=== PATIENT | female | born 1995 | race Caucasian/White ===

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

== ENCOUNTER 2017-03-04 14:13 | Emergency (ER) | payer OTHER ==
[2017-03-04 14:21] VITALS: TEMP 97.8; BMI 31.8
[2017-03-04] MEDS ORDERED: SODIUM CHLORIDE 1,000 ML IV STA (16:43)
[2017-03-04] MEDS ORDERED: ONDANSETRON 4 MG/2 ML VIAL IVPUSH ONE (16:43)
[2017-03-04] MEDS ORDERED: ONDANSETRON 4 MG/2 ML VIAL ONE (16:59)
--- NOTE | 2017-03-04 17:10 | PDOC ---
History of Present Illness - General Chief Complaint: Pain Stated Complaint: SICK Time Seen by Provider: 03/04/17 15:43 History Source: Patient - History of Present Illness Timing/Duration: reports: constant Quality: reports: mild Abdominal Pain Onset Location: reports: other (lower abd) Past History - Past Medical History Allergies/Adverse Reactions: Allergies Allergy/AdvReac Type Severity Reaction Status Date / Time No Known Allergies Allergy Verified 03/04/17 14:21 Home Medications: Ambulatory Orders NK [No Known Home Medication] 03/04/17 Other medical history: NONE - Reproductive History Is Patient Now?: No (#): 0 Cervical CA: No Dysfunctional Uterine Bleeding: No Ectopic : No Endometrial CA: No Polycystic Ovaries: No Therapeutic (s) & number: No Tubal Ligation: No - Immunization History Immunization Up to Date: Yes - Psycho/Social/Smoking Cessation Hx Anxiety: No Suicidal Ideation: No Smoking History: Never smoked Have you smoked in the past 12 months: No Hx Alcohol Use: Yes (SOCIAL) Drug/Substance Use Hx: No Substance Use Type: None Review of Systems - Review of Systems Constitutional: No: Chills, Fever, Malaise, Weakness ABD/GI: Yes: Diarrhea, Nausea, Vomiting, Abdominal cramping : No: Dysuria, Flank Pain, Hematuria *Physical Exam - Vital Signs Last Vital Signs Temp Pulse Resp BP Pulse Ox 97.8 F 88 20 154/89 98 03/04/17 14:17 03/04/17 14:17 03/04/17 14:17 03/04/17 14:17 03/04/17 14:17 - Physical Exam General Appearance: Yes: Appropriately Dressed. No: Apparent Distress HEENT: positive: Normal Voice Neck: positive: Supple Respiratory/Chest: negative: Respiratory Distress Gastrointestinal/Abdominal: positive: Normal Bowel Sounds, Tender (to mid lower abd, NT over RLQ), Soft. negative: Distended, Guarding, Rebound Musculoskeletal: negative: CVA Tenderness Extremity: positive: Normal Inspection Integumentary: positive: Dry, Warm Neurologic: positive: Fully Oriented, Alert, Normal Mood/Affect ED Treatment Course - LABORATORY CBC & Chemistry Diagram: 03/04/17 16:56 03/04/17 16:56 Medical Decision Making - Medical Decision Making 03/04/17 17:07 21 yo F, no sig hx, here with n/v/d that started 2 hrs ago and a/w lower abd pain. No f/c. No usual food, sick contact, recent travel or abx use. Also complaining that her menses was late this month. Uses condoms per pt See exam N/V/D today Possible gastroenteritis, unlikely appy -zoan -IVF -labs Irreg menses R/o preg 03/04/17 18:49
[2017-03-04 17:14] LABS: BASOPHIL 0.3 % (0-2.0); EOSINOPHIL 0.7 % (0-4.5); MCH 28.3 pg (25.7-33.7); MCHC 33.5 g/dl (32.0-36.0); MEAN CELL VOLUME 84.2 fl (80-96); MEAN PLT VOLUME 9.4 fl (7.5-11.1); NEUTROPHILS 83.1 % (42.8-82.8); PLATELET COUNT 160 K/MM3 (134-434); RDW 13.2 % (11.6-15.6); WHITE BLOOD COUNT 7.6 K/mm3 (4.0-10.0)
[2017-03-04 18:40] VITALS: BP 109/65; PULSE 70
[2017-03-04 19:08] LABS: ALBUMIN 3.8 g/dl (3.4-5.0); ANION GAP 8 (8-16); CALCIUM 8.5 mg/dL (8.5-10.1); CO2 27 mmol/L (21-32); CREATININE 0.6 mg/dL (0.55-1.02); GLUCOSE,RANDOM 82 mg/dL (74-106); SGOT/AST 23 U/L (15-37); SGPT/ALT 21 U/L (12-78)
[2017-03-04 19:10] LABS: ALK PHOS 62 U/L (45-117); BILIRUBIN,TOTAL 0.6 mg/dL (0.2-1.0); TOT PROT 7.2 g/dl (6.4-8.2)
--- NOTE | 2017-03-04 19:37 | PDOC ---
*Physical Exam - Vital Signs Last Vital Signs Temp Pulse Resp BP Pulse Ox 97.8 F 70 18 109/65 97 03/04/17 14:17 03/04/17 18:39 03/04/17 18:39 03/04/17 18:39 03/04/17 18:39 - Physical Exam General Appearance: Yes: Appropriately Dressed Respiratory/Chest: positive: Lungs Clear, Normal Breath Sounds Gastrointestinal/Abdominal: positive: Normal Bowel Sounds, Soft, Other ( generalized mild tenderness) Extremity: positive: Normal Capillary Refill, Normal Inspection, Normal Range of Motion Integumentary: positive: Normal Color, Dry, Warm Neurologic: positive: Fully Oriented, Alert, Normal Mood/Affect ED Treatment Course - LABORATORY CBC & Chemistry Diagram: 03/04/17 16:56 03/04/17 18:18 - ADDITIONAL ORDERS Additional order review: Laboratory Results 03/04/17 03/04/17 03/04/17 18:18 16:56 16:56 Sodium 140 Cancelled Potassium 3.9 Cancelled Chloride 105 Cancelled Carbon Dioxide 27 Cancelled Anion Gap 8 Cancelled BUN 12 Cancelled Creatinine 0.6 D Cancelled Creat Clearance w eGFR > 60 Cancelled Random Glucose 82 Cancelled Calcium 8.5 Cancelled Total Bilirubin 0.6 D Cancelled AST 23 Cancelled ALT 21 D Cancelled Alkaline Phosphatase 62 Cancelled Total Protein 7.2 Cancelled Albumin 3.8 Cancelled Serum , Qual Cancelled 03/04/17 16:56 RBC 4.24 MCV 84.2 MCHC 33.5 RDW 13.2 MPV 9.4 Neutrophils % 83.1 H D Lymphocytes % 12.8 D Monocytes % 3.1 L Eosinophils % 0.7 Basophils % 0.3 - Medications Given in the ED: ED Medications Discontinued Medications Generic Name Dose Route Start Last Admin Trade Name Freq PRN Reason Stop Dose Admin Sodium Chloride 1,000 mls @ 1,000 mls/hr 03/04/17 16:43 03/04/17 17:11 Normal Saline - IV 03/04/17 17:42 1,000 mls/hr ASDIR STA Administration Ondansetron HCl 4 mg 03/04/17 16:43 03/04/17 17:11 Zofran Injection IVPUSH 03/04/17 16:44 4 mg ONCE ONE Administration Medical Decision Making - Medical Decision Making 06/28/17 20:06 patient tolerating PO. no vomiting or diarrhea at this time. mild intermittent generalized cramping reported. will give bentyl. liekly gastroenteritis. BRAT diet and close PMD follow up. strict return precautions reviewed with patient. *DC/Admit/Observation/Transfer Diagnosis at time of Disposition: Gastroenteritis - Discharge Dispostion Disposition: HOME - Patient Instructions Printed Discharge Instructions: Viral Gastroenteritis, Gastroenteritis Diet Additional Instructions: continue a BRAT (Bananas, RICE, apples, Naylor) Diet drink plenty of fluids follow up with your doctor. return to the ER if symptoms worsen.
[2017-03-04] MEDS ORDERED: DICYCLOMINE HCL 10 MG CAPSULE ONE (19:52)
[2017-03-04] MEDS ORDERED: DICYCLOMINE HCL 10 MG/5 ML PO ONE (19:58)
== END 2017-03-04 20:10 | disposition home or self-care (01) ==
LOC: JER 14:13
PROC: 3E033GC Introduction of Other Therapeutic Substance into Peripheral Vein, Percutaneous Approach (ICD-10-PCS; principal; 2017-03-04)
DX: K52.9 Noninfective gastroenteritis and colitis, unspecified (principal)
CPT/HCPCS: 36415; 80053; 84703; 85025; 96374; 99284-25

== ENCOUNTER 2017-07-02 06:11 | Emergency (ER) | payer OTHER ==
[2017-07-02 06:52] VITALS: BP 108/90; PULSE 86; TEMP 98.6; BMI 31.0
--- NOTE | 2017-07-02 07:11 | PDOC ---
History of Present Illness - General Chief Complaint: Pain, Acute Stated Complaint: RT SHOULDER PAIN Time Seen by Provider: 07/02/17 07:08 History Source: Patient Exam Limitations: No Limitations - History of Present Illness Initial Comments: 07/02/17 07:11 Patient is a 21-year-old female with no past medical history presents to the emergency department complaining of worsening right shoulder pain. Patient states that her pain started approximately 3-4 weeks ago. She denies trauma or injuring her shoulder in anyway. She states that the pain is gone progressively worse over the last month and now it is difficult for her to brush her hair or put on her makeup. She has tried taking ibuprofen with little relief. She states that occasionally the pain radiates down her arm. Admits to weakness, pain with movement. Denies numbness and tingling, fevers, chills, recent illness , nausea, vomiting, diarrhea. Past History - Travel Traveled outside of the country in the last 30 days: No Close contact w/someone who was outside of country & ill: No - Past Medical History Allergies/Adverse Reactions: Allergies Allergy/AdvReac Type Severity Reaction Status Date / Time No Known Allergies Allergy Verified 07/02/17 06:50 Home Medications: Ambulatory Orders Ibuprofen 800 mg PO TID #30 tablet 07/02/17 - Reproductive History (#): 0 Cervical CA: No Dysfunctional Uterine Bleeding: No Ectopic : No Endometrial CA: No Polycystic Ovaries: No Therapeutic (s) & number: No Tubal Ligation: No - Immunization History Immunization Up to Date: Yes - Suicide/Smoking/Psychosocial Hx Smoking History: Never smoked Have you smoked in the past 12 months: No Information on smoking cessation initiated: No Hx Alcohol Use: No Drug/Substance Use Hx: No Substance Use Type: None Review of Systems - Review of Systems Able to Perform ROS?: Yes Comments:: 07/02/17 08:23 CONSTITUTIONAL: Absent: fever, chills, diaphoresis, generalized weakness, malaise, loss of appetite HEENT: Absent: rhinorrhea, nasal congestion, throat pain, throat swelling, difficulty swallowing, mouth swelling, ear pain, eye pain, visual Changes CARDIOVASCULAR: Absent: chest pain, loss of consciousness, palpitations, irregular heart rate, peripheral edema RESPIRATORY: Absent: cough, shortness of breath, dyspnea with exertion, orthopnea, wheezing, stridor, hemoptysis GASTROINTESTINAL: Absent: abdominal pain, abdominal distension, nausea, vomiting, diarrhea, constipation, melena, hematochezia GENITOURINARY: Absent: dysuria, frequency, urgency, hesitancy, hematuria, flank pain, genital pain MUSCULOSKELETAL: Present: R shoulder pain/weakness Absent: joint swelling SKIN: Absent: rash, itching, pallor HEMATOLOGIC/IMMUNOLOGIC: Absent: easy bleeding, easy bruising, lymphadenopathy, frequent infections ENDOCRINE: Absent: unexplained weight gain, unexplained weight loss, heat intolerance, cold intolerance NEUROLOGIC: Absent: headache, focal weakness or paresthesias, dizziness, unsteady gait, seizure, mental status changes, bladder or bowel incontinence PSYCHIATRIC: Absent: anxiety, depression, suicidal or homicidal ideation, hallucinations. *Physical Exam - Vital Signs Last Vital Signs Temp Pulse Resp BP Pulse Ox 98.6 F 86 14 108/90 100 07/02/17 06:50 07/02/17 06:50 07/02/17 06:50 07/02/17 06:50 07/02/17 06:50 - Physical Exam Comments: 07/02/17 08:23 GENERAL: Well developed, well nourished. Awake and alert x3. No acute distress. HEENT: Normocephalic, atraumatic. PERRLA, EOMI. No conjunctival pallor. Sclera are non- icteric. Moist mucous membranes. Oropharynx is clear. NECK: Supple. Full ROM. No JVD. Carotid pulses 2+ and symmetric, without bruits. No thyromegaly. No lymphadenopathy. CARDIOVASCULAR: Regular rate and rhythm. No murmurs, rubs, or gallops. Distal pulses are 2+ and symmetric. PULMONARY: No evidence of respiratory distress. Lungs clear to auscultation bilaterally. No wheezing, rales or rhonchi. ABDOMINAL: Soft. Non-tender. Non-distended. No rebound or guarding. No organomegaly. Normoactive bowel sounds. MUSCULOSKELETAL Normal range of motion at all other joints except R shoulder. See below No bony deformities or tenderness. No CVA tenderness. EXTREMITIES: Range of motion of the right shoulder decreased with external rotation. Range of motion intact in other directions however with pain. Positive apprehension test. Negative empty can, drop arm test. Negative speed's, Yergason exams. Pulses 2+ bilaterally gross sensation intact. Reflexes of the elbow 2+ bilaterally. No cyanosis. No clubbing. No edema. No calf tenderness. SKIN: Warm and dry. Normal capillary refill. No rashes. No jaundice. NEUROLOGICAL: Alert, awake, appropriate. Cranial nerves 2-12 intact. No deficits to light touch and temperature in face, upper extremities and lower extremities. No motor deficits in the in face, upper extremities and lower extremities. Normoreflexic in the upper and lower extremities. Normal speech. Toes are down- going bilaterally. Gait is normal without ataxia. PSYCHIATRIC: Cooperative. Good eye contact. Appropriate mood and affect. Medical Decision Making - Medical Decision Making 07/02/17 08:25 Patient is a 21-year-old female no past medical history with increasing right shoulder pain over 1 month. Given physical exam most likely shoulder impingement. 1.urine 2.ibuprofen 3.right shoulder x-ray 4.reevaluate 07/02/17 08:37 Wet read: X-ray is negative for fracture, dislocation. Will d/c home at this time with ortho referral, and will recommend PT. *DC/Admit/Observation/Transfer Diagnosis at time of Disposition: Shoulder impingement Qualifiers: Laterality: right Qualified Code(s): M75.41 - Impingement syndrome of right shoulder - Discharge Dispostion Disposition: HOME Condition at time of disposition: Good Admit: No - Prescriptions Prescriptions: Ibuprofen 800 mg PO TID #30 tablet - Referrals Referrals: Cintia Dejesus MD [Primary Care Provider] - Bob Olvera MD [Staff Physician] - - Patient Instructions Printed Discharge Instructions: Shoulder Tendinopathy Additional Instructions: You have a shoulder impingement. This happens when the tendons become inflamed of your shoulder which causes aching, pain with overhead movements. You may use heat on the shoulder to help reduce her pain. He may also use icy hot if that helps. You were prescribed ibuprofen. Take 800mg (1 pill) every 8 hours not to exceed 3,000mg a day. Your given a sling to use as needed however you want to move your arm and keep your shoulder moving. Follow-up with orthopedics in 2-3 days. Physical therapy will also help with her symptoms. Return to the emergency department if you have worsening pain, numbness or tingling in the arm, headache, extreme pain in the arm, or any changes in her symptoms.
[2017-07-02] MEDS ORDERED: IBUPROFEN 400 MG TABLET (FP) PO ONE (07:37)
[2017-07-02] MEDS ORDERED: IBUPROFEN 600 MG TABLET (FP) PO ONE (08:12)
== END 2017-07-02 09:16 | disposition home or self-care (01) ==
LOC: JER 06:11
DX: M75.41 Impingement syndrome of right shoulder (principal)
CPT/HCPCS: 73030-TC-RT; 84703; 99281-25

== ENCOUNTER 2018-04-10 18:43 | Emergency (ER) | payer OTHER ==
[2018-04-10 18:55] VITALS: TEMP 98.4; BMI 29.5
--- NOTE | 2018-04-10 19:20 | PDOC ---
History of Present Illness <Cary Perry - Last Filed: 04/11/18 01:31> <Simon Navarrete - Last Filed: 04/11/18 01:39> - General Chief Complaint: Pain Stated Complaint: ABDOMINAL PAIN/VOMITTING Time Seen by Provider: 04/10/18 19:20 Past History <Cary Perry - Last Filed: 04/11/18 01:31> - Past Medical History COPD: No - Reproductive History (#): 0 Cervical CA: No Dysfunctional Uterine Bleeding: No Ectopic : No Endometrial CA: No Polycystic Ovaries: No Therapeutic (s) & number: No Tubal Ligation: No - Immunization History Immunization Up to Date: Yes - Suicide/Smoking/Psychosocial Hx Smoking History: Never smoked Have you smoked in the past 12 months: No Hx Alcohol Use: No Drug/Substance Use Hx: No Substance Use Type: None <Simon Navarrete - Last Filed: 04/11/18 01:39> - Past Medical History Allergies/Adverse Reactions: Allergies Allergy/AdvReac Type Severity Reaction Status Date / Time No Known Allergies Allergy Verified 04/10/18 18:55 Home Medications: Ambulatory Orders NK [No Known Home Medication] 04/10/18 *Physical Exam - Vital Signs Last Vital Signs Temp Pulse Resp BP Pulse Ox 98.4 F 68 18 118/70 99 04/10/18 18:52 04/10/18 18:52 04/10/18 18:52 04/10/18 18:52 04/10/18 18:52 <Cary Perry - Last Filed: 04/11/18 01:31> - Vital Signs Last Vital Signs Temp Pulse Resp BP Pulse Ox 98.4 F 68 18 118/70 99 04/10/18 18:52 04/10/18 18:52 04/10/18 18:52 04/10/18 18:52 04/10/18 18:52 <Simon Navarrete - Last Filed: 04/11/18 01:39> ED Treatment Course - LABORATORY CBC & Chemistry Diagram: 04/10/18 20:04 04/10/18 20:04 - ADDITIONAL ORDERS Additional order review: Laboratory Results 04/10/18 04/10/18 20:04 20:04 Sodium 142 Potassium 3.7 Chloride 107 Carbon Dioxide 28 Anion Gap 7 L BUN 13 Creatinine 0.7 Creat Clearance w eGFR > 60 Random Glucose 80 Calcium 8.8 Total Bilirubin 0.5 AST 20 ALT 21 Alkaline Phosphatase 68 Total Protein 7.3 Albumin 3.9 Urine Color Yellow Urine Appearance Clear Urine pH 6.0 Ur Specific [place] 1.032 Urine Protein Negative Urine Glucose (UA) Negative Urine Ketones Negative Urine Blood Negative Urine Nitrite Negative Urine Bilirubin Negative Urine Urobilinogen Negative Ur Leukocyte Esterase Negative Urine HCG, Qual Negative 04/10/18 20:04 RBC 4.53 MCV 84.3 MCHC 34.7 RDW 13.3 MPV 8.8 Neutrophils % 55.1 Lymphocytes % 37.6 Monocytes % 4.5 Eosinophils % 2.3 Basophils % 0.5 - Medications Given in the ED: ED Medications Discontinued Medications Generic Name Dose Route Start Last Admin Trade Name Ken PRN Reason Stop Dose Admin Acetaminophen 1,000 mg 04/10/18 20:09 04/10/18 20:49 Ofirmev Injection - IVPB 04/10/18 20:10 1,000 mg ONCE ONE Administration Sodium Chloride 1,000 mls @ 1,000 mls/hr 04/10/18 20:09 04/10/18 20:48 Normal Saline - IV 04/10/18 21:08 1,000 mls/hr ASDIR STA Administration Famotidine/Sodium Chloride 20 mg in 50 mls @ 100 mls/hr 04/10/18 20:53 21:01 Pepcid 20 Mg Premixed Ivpb - IVPB 04/10/18 21:22 100 mls/hr ONCE ONE Administration Ondansetron HCl 4 mg 04/10/18 20:09 04/10/18 20:49 Zofran Injection IVPUSH 04/10/18 20:10 4 mg ONCE ONE Administration <Cary Perry - Last Filed: 04/11/18 01:31> - LABORATORY CBC & Chemistry Diagram: 04/10/18 20:04 04/10/18 20:04 <Siomn Navarrete - Last Filed: 04/11/18 01:39> *DC/Admit/Observation/Transfer - Discharge Dispostion Decision to Admit order: No <Cary Perry - Last Filed: 04/11/18 01:31> - Discharge Dispostion Decision to Admit order: No <Simon Navarrete - Last Filed: 08/05/18 01:39> Diagnosis at time of Disposition: Irritable bowel Qualifiers: Irritable bowel syndrome type: with both diarrhea and constipation Qualified Code(s): K58.2 - Mixed irritable bowel syndrome - Discharge Dispostion Disposition: HOME Condition at time of disposition: Improved - Referrals Referrals: Mikie Meza MD [Staff Physician] - - Patient Instructions Printed Discharge Instructions: Irritable Bowel Syndrome (Alternative Therapy) Additional Instructions: you should follow up with your primary doctor. return for any problems or concerns . you should also follow up with a mud temperer , see referral information for dr. Meza, call to schedule. - Post Discharge Activity Forms/Work/School Notes: Back to Work
[2018-04-10] MEDS ORDERED: SODIUM CHLORIDE 1,000 ML IV STA (20:09)
[2018-04-10] MEDS ORDERED: ACETAMINOPHEN 1000 MG/100 ML VIAL (NON FORMULARY) IVPB ONE (20:09)
[2018-04-10] MEDS ORDERED: ONDANSETRON 4 MG/2 ML VIAL IVPUSH ONE (20:09)
[2018-04-10] MEDS ORDERED: ACETAMINOPHEN INJECTION 100 ML IVPB ONE (20:37)
[2018-04-10] MEDS ORDERED: ONDANSETRON 4 MG/2 ML VIAL ONE (20:38)
[2018-04-10] MEDS ORDERED: FAMOTIDINE 20 MG/50 ML IVPB 20 MG/50 ML MG IVPB ONE ×2 (20:53→20:58)
[2018-04-10 20:56] LABS: BASO % 0.5 % (0-2.0); EOS % 2.3 % (0-4.5); HEMATOCRIT 38.2 % (32.4-45.2); HEMOGLOBIN 13.2 GM/dL (10.7-15.3); LYMPH % 37.6 % (8-40); MCH 29.2 pg (25.7-33.7); MCHC 34.7 g/dl (32.0-36.0); MEAN CELL VOLUME 84.3 fl (80-96); MEAN PLT VOLUME 8.8 fl (7.5-11.1); MONO % 4.5 % (3.8-10.2); NEUT % 55.1 % (42.8-82.8); PLATELET COUNT 191 K/MM3 (134-434); RBC 4.53 M/mm3 (3.60-5.2); RDW 13.3 % (11.6-15.6); WHITE BLOOD COUNT 5.5 K/mm3 (4.0-10.0)
[2018-04-10 21:01] LABS: URINE APPEARANCE CLEAR; URINE BILIRUBIN NEGATIVE (<2.0 mg/dL); URINE COLOR YELLOW; URINE GLUCOSE (UA) NEGATIVE (NEGATIVE); URINE KETONE NEGATIVE (NEGATIVE); URINE LEUK ESTERASE NEGATIVE (NEGATIVE); URINE NITRITE NEGATIVE (NEGATIVE); URINE PROTEIN NEGATIVE (NEGATIVE); URINE UROBILINOGEN NEGATIVE mg/dL (0.2-1.0)
[2018-04-10 21:03] LABS: HCG,QUALITATIVE URINE Negative
[2018-04-10 21:29] LABS: ALBUMIN 3.9 g/dl (3.4-5.0); ANION GAP 7 (8-16); BLOOD UREA NITROGEN 13 mg/dL (7-18); CALCIUM 8.8 mg/dL (8.5-10.1); CHLORIDE 107 mmol/L (98-107); CO2 28 mmol/L (21-32); GLUCOSE,RANDOM 80 mg/dL (74-106); POTASSIUM 3.7 mmol/L (3.5-5.1); SODIUM 142 mmol/L (136-145)
[2018-04-10 21:32] LABS: ALK PHOS 68 U/L (45-117); BILIRUBIN,TOTAL 0.5 mg/dL (0.2-1.0); CREATININE 0.7 mg/dL (0.55-1.02); SGOT/AST 20 U/L (15-37); SGPT/ALT 21 U/L (12-78); TOT PROT 7.3 g/dl (6.4-8.2)
--- NOTE | 2018-04-10 23:09 | PDOC ---
Attending Attestation - Resident Resident Name: Simon Navarrete - ED Attending Attestation I have performed the following: I have examined & evaluated the patient, The case was reviewed & discussed with the resident, I agree w/resident's findings & plan, Exceptions are as noted - Physicial Exam PE: 04/10/18 23:08 awake alert lungs clear bilaterally heart rrr no mrg. abd soft suprapubic rlq ruq ttp. no rebound no gurading. no cva tenderess. skin warm and dry no rash. alert oriented x 3. - Medical Decision Making 04/10/18 23:08 differential: appendicitis, colitis, cholelithiasis. plan ruq us, ct a/p r/o appendicitis. pt h/o right ovarian cyst, r/o pyelo uti. <Cary Perry - Last Filed: 04/10/18 23:08> - HPI HPI: 04/10/18 23:11 Patient is a 22 year old female with no significant past medical history who presents to the ED with complaints of bilateral lower quadrant abdominal pain that began earlier this week. Patient reports abdominal pain is a constant sharp 6/10 pain at rest but increases to 10/10 in intensity. She reports experiencing associated symptoms of headache, dysuria, and vomiting. Patient reports experiencing intermittent diarrhea that began x4 days ago, but states it has since subside, stating her last bowel movement was today and was normal. Patient reports her last menstrual cycle was March 25, 2018. Denies chest pain, Sob. Denies nausea, coughing, fever,chills. Denies contact with sick individuals, out of state travellings. Denies any other symptoms. Allergies: None Social history: No smoking. No alcohol. No illicit drugs. Surgical history: None PMD: None <Kalyan Timmons - Last Filed: 04/11/18 01:28>
[2018-04-11] MEDS ORDERED: ACETAMINOPHEN 325 MG TABLET (FP) PO ONE (01:37)
[2018-04-11] MEDS ORDERED: ACETAMINOPHEN 325 MG TABLET (FP) ONE (01:39)
[2018-04-11 01:44] VITALS: BP 121/74; PULSE 69
== END 2018-04-11 01:43 | disposition home or self-care (01) ==
LOC: JER 18:43
PROC: 3E033NZ Introduction of Analgesics, Hypnotics, Sedatives into Peripheral Vein, Percutaneous Approach (ICD-10-PCS; principal; 2018-04-10)
PROC: 3E033GC Introduction of Other Therapeutic Substance into Peripheral Vein, Percutaneous Approach (ICD-10-PCS; 2018-04-10)
PROC: 3E0337Z Introduction of Electrolytic and Water Balance Substance into Peripheral Vein, Percutaneous Approach (ICD-10-PCS; 2018-04-10)
DX: K58.2 Mixed irritable bowel syndrome (principal)
CPT/HCPCS: 36415; 74177-TC; 80053; 81003; 84703; 85025; 87086; 99283-25; J0131; J7030

== ENCOUNTER 2018-09-20 14:17 | Emergency (ER) | payer OTHER ==
--- NOTE | 2018-09-20 14:42 | PDOC ---
Rapid Medical Evaluation Chief Complaint: Syncope/Near Syncope Time Seen by Provider: 09/20/18 14:37 Medical Evaluation: Allergies Allergy/AdvReac Type Severity Reaction Status Date / Time No Known Allergies Allergy Verified 04/10/18 18:55 09/20/18 14:37 I have performed a brief in-person evaluation of this patient. The patient presents with a chief complaint of: dizziness ? LOC and fell x 8 stairs x 30mins ago. twisted right knee and arm , cough and cold x 2 days, worse this AM. Pertinent physical exam findings: pale pain to right knee and right arm. I have ordered the following: Influenza, UA/ UCG The patient will proceed to the ED for further evaluation. Discharge Disposition - Diagnosis Near syncope - Referrals Referrals: Luiza Ya MD [Primary Care Provider] - - Patient Instructions - Post Discharge Activity
[2018-09-20 14:43] VITALS: BP 107/64; PULSE 84; TEMP 98.5; BMI 30.7
[2018-09-20 15:03] LABS: HCG,QUALITATIVE URINE Negative
[2018-09-20 15:33] LABS: URINE APPEARANCE CLEAR; URINE BILIRUBIN NEGATIVE (<2.0 mg/dL); URINE COLOR LTYELLOW; URINE GLUCOSE (UA) NEGATIVE (NEGATIVE); URINE KETONE NEGATIVE (NEGATIVE); URINE LEUK ESTERASE NEGATIVE (NEGATIVE); URINE NITRITE NEGATIVE (NEGATIVE); URINE PROTEIN NEGATIVE (NEGATIVE); URINE UROBILINOGEN NEGATIVE mg/dL (0.2-1.0)
[2018-09-20] MEDS ORDERED: KETOROLAC TROMETHAMINE 60 MG/2 ML VIAL IM ONE (16:04)
--- NOTE | 2018-09-20 16:10 | PDOC ---
History of Present Illness - General History Source: Patient - History of Present Illness Associated Symptoms: reports: malaise, nausea/vomiting, weakness <Oliver Stewart - Last Filed: 09/20/18 18:16> <Lelia Barney - Last Filed: 09/20/18 18:24> - General Chief Complaint: Syncope/Near Syncope Stated Complaint: Cold Symptoms Time Seen by Provider: 09/20/18 14:37 Past History - Past Medical History COPD: No - Reproductive History (#): 0 Cervical CA: No Dysfunctional Uterine Bleeding: No Ectopic : No Endometrial CA: No Polycystic Ovaries: No Therapeutic (s) & number: No Tubal Ligation: No - Immunization History Immunization Up to Date: Yes - Suicide/Smoking/Psychosocial Hx Smoking History: Former smoker Have you smoked in the past 12 months: No Information on smoking cessation initiated: No Hx Alcohol Use: No Drug/Substance Use Hx: Yes (Ginaagdorysa) Substance Use Type: None <Angela StewartDamianIrina - Last Filed: 09/20/18 18:16> <Lelia Barney - Last Filed: 09/20/18 18:24> - Past Medical History Allergies/Adverse Reactions: Allergies Allergy/AdvReac Type Severity Reaction Status Date / Time No Known Allergies Allergy Verified 04/10/18 18:55 Home Medications: Ambulatory Orders NK [No Known Home Medication] 04/10/18 Review of Systems - Review of Systems Constitutional: No: Chills, Fever Respiratory: Yes: Cough. No: Shortness of Breath Cardiac (ROS): Yes: Lightheadedness. No: Chest Pain, Palpitations ABD/GI: No: Diarrhea, Nausea, Vomiting Neurological: No: Headache, Dizziness <Angela StewartDamianIrina - Last Filed: 09/20/18 18:16> *Physical Exam - Vital Signs Last Vital Signs Temp Pulse Resp BP Pulse Ox 98.5 F 84 20 107/64 99 09/20/18 14:38 09/20/18 14:38 09/20/18 14:38 09/20/18 14:38 09/20/18 14:38 - Physical Exam General Appearance: Yes: Appropriately Dressed. No: Apparent Distress HEENT: positive: Normal ENT Inspection, Normal Voice. negative: Scleral Icterus (R), Scleral Icterus (L) Neck: positive: Supple. negative: Lymphadenopathy (R), Lymphadenopathy (L) Respiratory/Chest: positive: Lungs Clear, Normal Breath Sounds. negative: Respiratory Distress Cardiovascular: positive: Regular Rate, S1, S2 Gastrointestinal/Abdominal: positive: Soft. negative: Tender Musculoskeletal: negative: CVA Tenderness Extremity: positive: Tender (to medial R knee and diffuse R shoulder/elbow, no joint swelling/deformity, FROMI) Integumentary: positive: Dry, Warm Neurologic: positive: Fully Oriented, Alert, Normal Mood/Affect, Motor Strength 5/5 <[facility] - Last Filed: 09/20/18 18:16> - Vital Signs Last Vital Signs Temp Pulse Resp BP Pulse Ox 98.5 F 84 20 107/64 99 09/20/18 14:38 09/20/18 14:38 09/20/18 14:38 09/20/18 14:38 09/20/18 14:38 <Lelia Barney - Last Filed: 09/20/18 18:24> Moderate Sedation - Procedure Monitoring Vital Signs: Procedure Monitoring Vital Signs Temperature 98.5 F 09/20/18 14:38 Pulse Rate 84 09/20/18 14:38 Respiratory Rate 20 09/20/18 14:38 Blood Pressure 107/64 09/20/18 14:38 O2 Sat by Pulse Oximetry (%) 99 09/20/18 14:38 [facility] - Last Filed: 09/20/18 18:16> - Procedure Monitoring Vital Signs: Procedure Monitoring Vital Signs Temperature 98.5 F 09/20/18 14:38 Pulse Rate 84 09/20/18 14:38 Respiratory Rate 20 09/20/18 14:38 Blood Pressure 107/64 09/20/18 14:38 O2 Sat by Pulse Oximetry (%) 99 09/20/18 14:38 <Lelia Barney - Last Filed: 09/20/18 18:24> ED Treatment Course - ADDITIONAL ORDERS Additional order review: Laboratory Results 09/20/18 14:45 Urine Color Ltyellow Urine Appearance Clear Urine pH 5.0 Ur Specific [place] 1.012 Urine Protein Negative Urine Glucose (UA) Negative Urine Ketones Negative Urine Blood 1+ H Urine Nitrite Negative Urine Bilirubin Negative Urine Urobilinogen Negative Ur Leukocyte Esterase Negative Urine HCG, Qual Negative <Oliver Stewart - Last Filed: 09/20/18 18:16> - ADDITIONAL ORDERS Additional order review: Laboratory Results 09/20/18 14:45 Urine Color Ltyellow Urine Appearance Clear Urine pH 5.0 Ur Specific [place] 1.012 Urine Protein Negative Urine Glucose (UA) Negative Urine Ketones Negative Urine Blood 1+ H Urine Nitrite Negative Urine Bilirubin Negative Urine Urobilinogen Negative Ur Leukocyte Esterase Negative Urine WBC (Auto) 1 Urine RBC (Auto) 4 Ur Epithelial Cells Rare Urine Mucus Rare Urine HCG, Qual Negative - Medications Given in the ED: ED Medications Discontinued Medications Generic Name Dose Route Start Last Admin Trade Name Freq PRN Reason Stop Dose Admin Ketorolac Tromethamine 60 mg 09/20/18 16:04 09/20/18 16:50 Toradol Injection - IM 09/20/18 16:05 60 mg ONCE ONE Administration <Lelia Barney Lacey - Last Filed: 09/20/18 18:24> Medical Decision Making - Medical Decision Making 09/20/18 16:02 22 yo F, history of IBS, here with multiple injuries after syncope this a.m. Patient states for the past several days she's had body aches with malaise, coughing, sneezing and this a.m., felt weak and dizzy and the next she remembers is being at the bottom of the steps on her right side mostly. Denies headache, dizziness, nausea, vomiting or blurry vision. No chest pain or shortness of breath. Did have breakfast prior to event this am. No history of syncope See exam Syncope in setting of m/l viral illness Well seth and stable here No CP/SOB -flu and preg neg -CTH and Xrays -anticipate dc 09/20/18 18:10 CT and XRs neg. Pt appears well here, only reports mild RLE and RUE pain. Currently talking to family in ED. Will dc w/ crutches, to take otc meds as prn pain and f/u with her PMD as needed <Oliver Stewart - Last Filed: 09/20/18 18:16> - Medical Decision Making The patient was seen and evaluated in conjunction with midlevel provider under my direct supervision, ancillary studies were reviewed. I agree with the plan as outlined by CARO Stewart. HPI, workup/dispo as outlined. Xrays of shoulder/knee with normal alignment, no shoulder CT head neg for injury/bleed. crutches, supportive care, RICE and WBAT. DC in stable condition. PMD followup 09/20/18 18:22 <Lelia Barney - Last Filed: 09/20/18 18:24> *DC/Admit/Observation/Transfer <Jaylen StewartIrina - Last Filed: 09/20/18 18:16> <Lelia Barney Lacey - Last Filed: 09/20/18 18:24> Diagnosis at time of Disposition: Viral illness, Muscle strain Syncope Qualifiers: Syncope type: unspecified Qualified Code(s): R55 - Syncope and collapse - Discharge Dispostion Disposition: HOME Condition at time of disposition: Improved - Referrals Referrals: Luiza Ya MD [Primary Care Provider] - - Patient Instructions Printed Discharge Instructions: DI for Syncope in Adults (Fainting), DI for Viral Syndrome Additional Instructions: The cause of your fainting might be due to viral illness. Rest, maintain adequate hydration and take motrin or tylenol as needed for pain. Your x-rays were negative for fracture. Use crutches for assistance with weight bearing. Follow-up with your doctor - Post Discharge Activity Forms/Work/School Notes: Back to School
[2018-09-20 16:16] LABS: EPI CELLS RARE /HPF (FEW); URINE MUCUS RARE
[2018-09-20] MEDS ORDERED: KETOROLAC TROMETHAMINE 60 MG/2 ML VIAL ONE (16:39)
== END 2018-09-20 18:29 | disposition home or self-care (01) ==
LOC: JER 14:17
PROC: 3E0233Z Introduction of Anti-inflammatory into Muscle, Percutaneous Approach (ICD-10-PCS; principal; 2018-09-20)
DX: B34.9 Viral infection, unspecified (principal); R55 Syncope and collapse; R11.2 Nausea with vomiting, unspecified; R42 Dizziness and giddiness; T14.8XXA Other injury of unspecified body region, initial encounter; W10.8XXA Fall (on) (from) other stairs and steps, initial encounter; Y93.89 Activity, other specified; Y92.89 Other specified places as the place of occurrence of the external cause; Y99.8 Other external cause status
CPT/HCPCS: 70450-TC; 73030-TC-RT-FY; 73070-TC-RT-FY; 73562-TC-RT-FY; 81003; 81015; 84703; 87804; 96372; 99281-25

== ENCOUNTER 2019-10-14 09:50 | Emergency (ER) | payer OTHER ==
[2019-10-14 10:13] VITALS: BMI 25.2
[2019-10-14] MEDS ORDERED: ACETAMINOPHEN 325 MG TABLET (FP) PO ONE (11:01)
[2019-10-14] MEDS ORDERED: ACETAMINOPHEN 325 MG TABLET (FP) ONE (11:33)
[2019-10-14 11:35] LABS: BASO % 0.3 % (0-2.0); EOS % 0.4 % (0-4.5); HEMATOCRIT 40.9 % (32.4-45.2); LYMPH % 9.4 % (8-40); MCHC 34.2 g/dl (32.0-36.0); MEAN CELL VOLUME 87.6 fl (80-96); MEAN PLT VOLUME 9.6 fl (7.5-11.1); MONO % 8.4 % (3.8-10.2); NEUT % 81.5 % (42.8-82.8); PLATELET COUNT 148 K/MM3 (134-434); RBC 4.67 M/mm3 (3.60-5.2); RDW 13.3 % (11.6-15.6); WHITE BLOOD COUNT 3.9 K/mm3 (4.0-10.0)
[2019-10-14 11:42] LABS: EPI CELLS 1.1 /HPF (0-5/HPF); HYALINE CASTS 2 /lpf (0-8); URINE APPEARANCE CLEAR; URINE BACTERIA 15.6 /hpf (NEGATIVE); URINE BILIRUBIN NEGATIVE (NEGATIVE); URINE COLOR YELLOW; URINE GLUCOSE (UA) NEGATIVE (NEGATIVE); URINE KETONE 1+ (NEGATIVE); URINE LEUK ESTERASE NEGATIVE (NEGATIVE); URINE NITRITE NEGATIVE (NEGATIVE); URINE PROTEIN NEGATIVE (NEGATIVE); URINE RBC 7 /hpf (0-4); URINE UROBILINOGEN 0.2 mg/dL (0.2-1.0); URINE WBC 1 /hpf (0-5)
[2019-10-14 12:21] LABS: ALBUMIN 3.9 g/dl (3.4-5.0); BILIRUBIN,TOTAL 0.4 mg/dL (0.2-1); BLOOD UREA NITROGEN 6.1 mg/dL (7-18); CALCIUM 9.2 mg/dL (8.5-10.1); CREATININE 0.7 mg/dL (0.55-1.3); POTASSIUM 3.8 mmol/L (3.5-5.1); TOT PROT 7.7 g/dl (6.4-8.2)
[2019-10-14] MEDS ORDERED: OSELTAMIVIR PHOSPHATE 75 MG CAPSULE PO ONE (14:23)
--- NOTE | 2019-10-14 14:46 | PDOC ---
Documentation entered by Chante Locke SCRIBE, acting as scribe for Torrey Gatica MD. Torrey Gatica MD: This documentation has been prepared by the Cornelia nicole Nirvannie, SCRIBE, under my direction and personally reviewed by me in its entirety. I confirm that the documentation accurately reflects all work, treatment, procedures, and medical decision making performed by me. History of Present Illness - General Chief Complaint: Pain Stated Complaint: COLD SYMPTOM Time Seen by Provider: 10/14/19 10:17 History Source: Patient Exam Limitations: No Limitations - History of Present Illness Initial Comments: 10/14/19 12:53 The patient is a 23 year old 5 weeks female A0, with a significant past medical history of IBS (noncompliant with medications), who presents to the emergency department with 3 days of worsening cold-like symptoms. As per patient, her symptoms initially onset as a sore throat 3 days ago at which time she was diagnosed with a viral illness. She notes onsetting 2 days ago she began to experience diffuse body aches, coughing spells followed by abdominal/ pelvic cramping (unsure if it is her IBS) with associated fevers (Tmax 102F). Patient notes associated white clumpy vaginal discharge. As per patient, today she experienced a coughing spell at which time she began to feel short of breath during, prompting her arrival to the ED. Patient notes taking Tylenol PM last night, without relief. She denies recent nausea, vomit, diarrhea or constipation. She denies recent vaginal bleeding, dysuria, frequency, urgency or hematuria. She denies recent chest pain, palpitations, or calf tenderness. Allergies: NKA Past surgical history: None reported. Social history: Nonsmoker. Denies EtOH use and recreational drug use. Primary Care Physician: RUEL Rosado QUARRY EXTRACTION WORKER: Dr. Dejesus Past History - Past Medical History Allergies/Adverse Reactions: Allergies Allergy/AdvReac Type Severity Reaction Status Date / Time No Known Allergies Allergy Verified 10/14/19 10:10 Home Medications: Ambulatory Orders Famotidine [Pepcid -] 20 mg PO DAILY 01/20/19 Oseltamivir Phosphate [Tamiflu -] 75 mg PO BID #9 capsule 10/14/19 Anemia: No Asthma: No Cancer: No Cardiac Disorders: No COPD: No CHF: No Diabetes: No GI Disorders: Yes (gerd,irritable bowel, chronic abdominal pain, nausea) Disorders: No HTN: No Hypercholesterolemia: No Liver Disease: No Seizures: No Thyroid Disease: No - Surgical History Abdominal Surgery: No Appendectomy: No Cardiac Surgery: No Cholecystectomy: No Lung Surgery: No Neurologic Surgery: No Orthopedic Surgery: No - Reproductive History (#): 0 Cervical CA: No Dysfunctional Uterine Bleeding: No Ectopic : No Endometrial CA: No Polycystic Ovaries: No Therapeutic (s) & number: No Tubal Ligation: No - Immunization History Immunization Up to Date: Yes - Psycho Social/Smoking Cessation Hx Smoking History: Never smoked Have you smoked in the past 12 months: No Hx Alcohol Use: No Drug/Substance Use Hx: No Substance Use Type: None Hx Substance Use Treatment: No Review of Systems - Review of Systems Able to Perform ROS?: Yes Comments:: 10/14/19 12:54 CONSTITUTIONAL: Present: Fever, chills, body aches. No reported:Malaise, Loss of Appetite HEENT: No reported: Rhinorrhea, Nasal Congestion, Throat Pain, Throat Swelling, Difficulty Swallowing, Mouth Swelling, Ear Pain, Eye Pain, Visual Changes CARDIOVASCULAR: No reported: Chest Pain, Syncope, Palpitations, Irregular Heart Rate, Lightheadedness, Peripheral Edema RESPIRATORY: Present: Cough, post-tussive shortness of breath No reported: SOB with Exertion, Orthopnea, Wheezing, Stridor, Hemoptysis GASTROINTESTINAL: No reported: Abdominal pain, Abdominal Distension, Nausea, Vomiting, Diarrhea, Constipation, Melena, Hematochezia GENITOURINARY: Present: Vaginal discharge. No reported: Dysuria, Frequency, Urgency, Hesitancy, Flank Pain, Genital Pain MUSCULOSKELETAL: No reported: Myalgia, Arthralgia, Joint Swelling, Back pain, Neck Pain SKIN: No reported: Rash, Itching, Pallor HEMEATOLOGIC/IMMUNOLOGIC: No reported: Easy Bleeding, Easy Bruising, Lymphadenopathy, Frequent infections ENDOCRINE: No reported: Unexplained Weight Gain, Unexplained Weight Loss, Heat Intolerance , Cold Intolerance NEUROLOGIC: No reported: Headache, Focal Weakness, Paresthesias, Vertigo, Lightheadedness, Unsteady Gait, Seizure, Mental Status Changes, Incontinence PSYCHIATRIC: No reported: Anxiety, Depression All Other Systems: Reviewed and Negative *Physical Exam - Vital Signs Last Vital Signs Temp Pulse Resp BP Pulse Ox 100.8 F H 108 H 16 129/91 100 10/14/19 10:11 10/14/19 10:11 10/14/19 10:11 10/14/19 10:11 10/14/19 10:11 - Physical Exam 10/14/19 11:32 GENERAL: The patient is awake, alert, and fully oriented, Nontoxic - in no acute distress. HEAD: Normocephalic, atraumatic. EYES: extraocular movements intact, sclera anicteric, conjunctiva clear. ENT: Normal voice, Moist mucous membranes., Posterior pharynx Unremarkable without erythema exudates, symmetric NECK: Normal range of motion, supple LUNGS: Breath sounds equal, clear to auscultation bilaterally. No wheezes, no rhonchi, no rales. HEART: Regular rate and rhythm, normal S1 and S2 without murmur, rub or gallop. ABDOMEN: Soft, nontender, No guarding, no rebound. No CVA tenderness EXTREMITIES: Normal range of motion, no edema. NEUROLOGICAL: No facial assymetry, Normal speech, PSYCH: Normal mood, normal affect. SKIN: Warm, Dry, normal turgor, ED Treatment Course - LABORATORY CBC & Chemistry Diagram: 10/14/19 11:20 10/14/19 11:20 - RADIOLOGY Radiology Studies Ordered: Category Date Time Status <14WKS US [US] Stat Ultrasound 10/14/19 11:23 Ordered Medical Decision Making - Medical Decision Making 10/14/19 11:32 23-year-old , hx IBS, at approximately 5 weeks gestation presenting with complaints of sore throat, body aches, fevers, nonproductive cough, Congestion for the past several days associated with mild lower abdominal discomfort Without associated discharge, dysuria, diarrhea, vaginal bleeding. Patient notes that her abdominal discomfort is intermittent, crampy, unsure if it is her IBS or not. She denies any associated nausea, vomiting. Patient had seen her PMD for the URI symptoms and was told it was viral. 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 Patient's exam is unremarkable without any focal tenderness in the abdomen, patient is also well-appearing, nontoxic, No distress. Suspect her URI symptoms may be viral URI versus influenza Her abdominal discomfort may be related to early , will obtain a ultrasound to screen for viability, will obtain UA to screen for UTI. We will give Tylenol for her fever as she is noted to be slightly tacky as well as febrile here. 10/14/19 13:34 Patient's labs are reviewed. The patient is influenza positive Awaiting transvaginal ultrasound to evaluate viability patient feels improved,. No current abdominal pain 10/14/19 17:34 TVUS suspected early iup corky have pt fu with obgyn return precautions were discussed Discharge - Discharge Information Problems reviewed: Yes Clinical Impression/Diagnosis: Influenza A Qualifiers: Weeks of gestation: unspecified Qualified Code(s): Z34.90 - Encounter for supervision of normal , unspecified, unspecified trimester Condition: Improved Disposition: HOME - Admission No - Additional Discharge Information Prescriptions: Oseltamivir Phosphate [Tamiflu -] 75 mg PO BID #9 capsule - Follow up/Referral Referrals: Cintia Dejesus MD [Primary Care Provider] - - Patient Discharge Instructions Patient Printed Discharge Instructions: DI for Influenza -- Adult - Post Discharge Activity Work/Back to School Note: Back to Work
[2019-10-14] MEDS ORDERED: OSELTAMIVIR PHOSPHATE 75 MG CAPSULE ONE (15:24)
[2019-10-14 15:49] VITALS: BP 124/84; PULSE 75; TEMP 99.3
== END 2019-10-14 15:46 | disposition home or self-care (01) ==
LOC: JERFT 09:50 → JER 09:50
DX: O26.891 Other specified pregnancy related conditions, first trimester (principal); Z3A.01 Less than 8 weeks gestation of pregnancy; J09.X2 Influenza due to identified novel influenza A virus with other respiratory manifestations
CPT/HCPCS: 36415; 76801-TC; 80053; 81003; 84702; 85025; 87804; 99283-25

== ENCOUNTER 2019-10-18 18:32 | Emergency (ER) | payer OTHER ==
[2019-10-18] MEDS ORDERED: SODIUM CHLORIDE 1,000 ML IV STA (19:30)
[2019-10-18] MEDS ORDERED: METOCLOPRAMIDE HCL INJECTION 10 MG/2 ML VIAL IVPB ONE (19:30)
[2019-10-18 19:31] VITALS: BMI 24.0
--- NOTE | 2019-10-18 19:31 | PDOC ---
Rapid Medical Evaluation Time Seen by Provider: 10/18/19 19:27 Medical Evaluation: Allergies Allergy/AdvReac Type Severity Reaction Status Date / Time No Known Allergies Allergy Verified 10/14/19 10:10 10/18/19 19:28 Pt presents to the ER for vomiting for one day. Pt was diagnosed with flu on Thursday. She started to take the tamiflu but stopped d/t nausea. She states that since this morning she has been vomiting and unable to keep anything down. She is 5 weeks , no bleeding noted Exam: epigastric tenderness Orders: labs, meds Pt to proceed to the ER for further evaluation Discharge Disposition - Diagnosis Vomiting Qualifiers: Vomiting type: unspecified Vomiting Intractability: unspecified Nausea presence : with nausea Qualified Code(s): R11.2 - Nausea with vomiting, unspecified - Referrals - Patient Instructions - Post Discharge Activity
--- NOTE | 2019-10-18 21:03 | PDOC ---
*Physical Exam - Vital Signs Last Vital Signs Temp Pulse Resp BP Pulse Ox 98 F 104 H 20 100/64 100 10/18/19 19:25 10/18/19 19:25 10/18/19 19:25 10/18/19 19:25 10/18/19 19:25 ED Treatment Course - LABORATORY CBC & Chemistry Diagram: 10/18/19 21:29 10/18/19 21:29 Medical Decision Making - Medical Decision Making 10/18/19 21:03 Patient seen by the advanced practice provider under my supervision. Ancillary testing reviewed as necessary. I agree with plan as outlined by the advanced practice provider. Discharge - Discharge Information Problems reviewed: Yes Clinical Impression/Diagnosis: Hyperemesis gravidarum - Follow up/Referral Referrals: Diana Jessica MD [Primary Care Provider] - - Patient Discharge Instructions - Post Discharge Activity
[2019-10-18] MEDS ORDERED: METOCLOPRAMIDE HCL INJECTION 10 MG/2 ML VIAL ONE (21:19)
--- NOTE | 2019-10-18 21:27 | PDOC ---
History of Present Illness - General Chief Complaint: Nausea/Vomiting Stated Complaint: ABD/PAIN/ VOMITING/NAUSEA Time Seen by Provider: 10/18/19 19:27 History Source: Patient - History of Present Illness Initial Comments: 10/18/19 21:26 23 year old female c/o nausea/ vomiting started today. patient reports that she was diagnosed with Influenza 4 days ago. US signs of early during recent visit. denies abdominal pain , vaginal bleeding, vaginal discharge Past History - Past Medical History Allergies/Adverse Reactions: Allergies Allergy/AdvReac Type Severity Reaction Status Date / Time No Known Allergies Allergy Verified 10/14/19 10:10 Home Medications: Ambulatory Orders Famotidine [Pepcid -] 20 mg PO DAILY 01/20/19 Oseltamivir Phosphate [Tamiflu -] 75 mg PO BID #9 capsule 10/14/19 Doxylamine Succinate/Vit B6 [Dic[address]at[address] Dr 10-10 mg Tablet] 1 each PO HS #30 tablet. 10/18/19 Anemia: No Asthma: No Cancer: No Cardiac Disorders: No COPD: No CHF: No Diabetes: No GI Disorders: Yes (gerd,irritable bowel, chronic abdominal pain, nausea) Disorders: No HTN: No Hypercholesterolemia: No Liver Disease: No Seizures: No Thyroid Disease: No - Surgical History Abdominal Surgery: No Appendectomy: No Cardiac Surgery: No Cholecystectomy: No Lung Surgery: No Neurologic Surgery: No Orthopedic Surgery: No - Reproductive History (#): 0 Para: 0 Cervical CA: No Dysfunctional Uterine Bleeding: No Ectopic : No Endometrial CA: No Polycystic Ovaries: No Therapeutic (s) & number: No Tubal Ligation: No - Immunization History Immunization Up to Date: Yes - Psycho Social/Smoking Cessation Hx Smoking History: Never smoked Have you smoked in the past 12 months: No Hx Alcohol Use: No Drug/Substance Use Hx: No Substance Use Type: None Hx Substance Use Treatment: No Review of Systems - Review of Systems Able to Perform ROS?: Yes Is the patient limited Divehi proficient: No Constitutional: No: Symptoms Reported, See HPI, Chills, Diaphoresis, Fever, Loss of Appetite, Malaise, Night Sweats, Weakness, Weight Stable, Unintentional Wgt. Loss, Unexplained wgt Loss, Other ABD/GI: Yes: Nausea, Vomiting. No: Symptoms Reported, See HPI, Abdominal Distended, Abd. Pain w/ defecation, Blood Streaked Bowels, Constipated, Diarrhea , Difficulty Swallowing, Poor Appetite, Poor Fluid Intake, Rectal Bleeding, Indigestion, Abdominal cramping, Tarry Stools, Other *Physical Exam - Vital Signs Last Vital Signs Temp Pulse Resp BP Pulse Ox 98 F 104 H 20 100/64 100 10/18/19 19:25 10/18/19 19:25 10/18/19 19:25 10/18/19 19:25 10/18/19 19:25 - Physical Exam General Appearance: Yes: Appropriately Dressed Respiratory/Chest: positive: Lungs Clear, Normal Breath Sounds Gastrointestinal/Abdominal: positive: Normal Bowel Sounds, Tender (epigastric tenderness), Soft Extremity: positive: Normal Capillary Refill, Normal Inspection, Normal Range of Motion Integumentary: positive: Other (lips dry) Neurologic: positive: Fully Oriented, Alert, Normal Mood/Affect ED Treatment Course - LABORATORY CBC & Chemistry Diagram: 10/18/19 21:29 10/18/19 21:29 ED Progress Note - Progress Note Progress Note: Hyperemesis gravidum P: zofran IVF labs beta hcg Medical Decision Making - Medical Decision Making 10/18/19 23:18 patient tolerated water and crackers. reports feeling better. will d/c home Discharge - Discharge Information Problems reviewed: Yes Clinical Impression/Diagnosis: Hyperemesis gravidarum Condition: Stable Disposition: HOME - Additional Discharge Information Prescriptions: Doxylamine Succinate/Vit B6 [Marly Dr 10-10 mg Tablet] 1 each PO HS #30 tablet.dr - Follow up/Referral Referrals: Diana Jessica MD [Primary Care Provider] - - Patient Discharge Instructions Patient Printed Discharge Instructions: DI for Hyperemesis Gravidarum Additional Instructions: drink plenty of fluids take diclegis as prescribed follow up with your obgyn as soon as possible return to the ER for any worsening symptoms. - Post Discharge Activity Work/Back to School Note: Back to Work, Back to School
[2019-10-18 21:48] LABS: BASO % 0.3 % (0-2.0); EOS % 0.3 % (0-4.5); HEMATOCRIT 43.1 % (32.4-45.2); HEMOGLOBIN 14.7 GM/dL (10.7-15.3); LYMPH % 9.8 % (8-40); MCH 29.7 pg (25.7-33.7); MCHC 34.1 g/dl (32.0-36.0); MEAN CELL VOLUME 87.1 fl (80-96); MEAN PLT VOLUME 8.8 fl (7.5-11.1); MONO % 4.3 % (3.8-10.2); NEUT % 85.3 % (42.8-82.8); PLATELET COUNT 205 K/MM3 (134-434); RBC 4.95 M/mm3 (3.60-5.2); RDW 13.3 % (11.6-15.6); WHITE BLOOD COUNT 7.4 K/mm3 (4.0-10.0)
[2019-10-18 21:50] LABS: EPI CELLS 2.8 /HPF (0-5/HPF); HYALINE CASTS 12 /lpf (0-8); URINE APPEARANCE CLEAR; URINE BACTERIA 36.1 /hpf (NEGATIVE); URINE BILIRUBIN 1+ (NEGATIVE); URINE COLOR DK YELLOW; URINE GLUCOSE (UA) NEGATIVE (NEGATIVE); URINE KETONE 3+ (NEGATIVE); URINE LEUK ESTERASE NEGATIVE (NEGATIVE); URINE NITRITE NEGATIVE (NEGATIVE); URINE PROTEIN 1+ (NEGATIVE); URINE RBC 5 /hpf (0-4); URINE WBC 3 /hpf (0-5)
[2019-10-18 22:26] LABS: BILIRUBIN,TOTAL 0.8 mg/dL (0.2-1); BLOOD UREA NITROGEN 10.7 mg/dL (7-18); CREATININE 0.7 mg/dL (0.55-1.3); POTASSIUM 4.2 mmol/L (3.5-5.1); TOT PROT 7.8 g/dl (6.4-8.2)
[2019-10-18] MEDS ORDERED: SODIUM CHLORIDE 0.9% 500 ML INFUS.BAG IV ONE (22:28)
[2019-10-18 23:30] VITALS: BP 110/68; PULSE 84; TEMP 98.2
== END 2019-10-18 23:41 | disposition home or self-care (01) ==
LOC: JER 18:32
PROC: 3E033GC Introduction of Other Therapeutic Substance into Peripheral Vein, Percutaneous Approach (ICD-10-PCS; principal; 2019-10-18)
DX: O26.891 Other specified pregnancy related conditions, first trimester (principal); O21.0 Mild hyperemesis gravidarum; Z3A.08 8 weeks gestation of pregnancy
CPT/HCPCS: 36415; 80053; 81003; 83690; 84702; 85025; 96374; 96375; 99284-25; J7030

== ENCOUNTER 2022-08-05 18:26 | Emergency (ER) | payer OTHER ==
[2022-08-05 19:07] VITALS: RESP 18; TEMP 99.2; BMI 34.7
[2022-08-05] MEDS ORDERED: ACETAMINOPHEN 325 MG TABLET (FP) PO ONE (20:47)
[2022-08-05] MEDS ORDERED: ACETAMINOPHEN 325 MG TABLET (FP) ONE (20:59)
[2022-08-05 21:32] LABS: BASO % 0.3 % (0-2.0); EOS % 1.3 % (0-4.5); HEMATOCRIT 43.6 % (32.4-45.2); HEMOGLOBIN 14.2 GM/dL (10.7-15.3); LYMPH % 34.1 % (8-40); MCH 27.5 pg (25.7-33.7); MCHC 32.6 g/dl (32.0-36.0); MEAN CELL VOLUME 84.5 fl (80-96); MEAN PLT VOLUME 9.1 fl (7.5-11.1); MONO % 4.9 % (3.8-10.2); NEUT % 59.4 % (42.8-82.8); PLATELET COUNT 255 10^3/uL (134-434); RBC 5.16 M/mm3 (3.60-5.2); RDW 14.6 % (11.6-15.6); WHITE BLOOD COUNT 7.8 K/mm3 (4.0-10.0)
[2022-08-05 21:41] LABS: EPI CELLS 16 /uL (0-25.1); HYALINE CASTS 1 /uL (0-3.1); PH,URINE 5.5 (5.0-8.0); URINE APPEARANCE CLEAR; URINE BACTERIA 100 /uL (0-1359); URINE BILIRUBIN NEGATIVE (NEGATIVE); URINE COLOR YELLOW; URINE GLUCOSE (UA) NEGATIVE (NEGATIVE); URINE KETONE NEGATIVE (NEGATIVE); URINE LEUK ESTERASE NEGATIVE (NEGATIVE); URINE NITRITE NEGATIVE (NEGATIVE); URINE PROTEIN NEGATIVE (NEGATIVE); URINE RBC 27 /uL (0-23.9); URINE UROBILINOGEN 0.2 mg/dL (0.2-1.0); URINE WBC 5 /uL (0-25.8)
[2022-08-05 21:42] LABS: INR 0.98 (0.83-1.09); PROTHROMBIN TIME (PATIENT) 11.3 SEC (9.7-13.0)
[2022-08-05 21:46] LABS: CHLORIDE 101 mmol/L (98-107); SODIUM 138 mmol/L (136-145)
[2022-08-05 21:48] LABS: ANION GAP 8 MMOL/L (8-16); CALCIUM 8.9 mg/dL (8.5-10.1); CO2 29 mmol/L (21-32)
[2022-08-05 21:49] LABS: ALBUMIN 4.2 g/dl (3.4-5.0); BLOOD UREA NITROGEN 11.7 mg/dL (7-18); GLUCOSE,RANDOM 91 mg/dL (74-106)
[2022-08-05 21:52] LABS: SGOT/AST 41 U/L (15-37); SGPT/ALT 107 U/L (13-61)
[2022-08-05 21:53] LABS: BILIRUBIN,TOTAL 0.4 mg/dL (0.2-1)
[2022-08-05 21:54] LABS: ALK PHOS 110 U/L (45-117)
[2022-08-05 22:42] VITALS: BP 122/76; PULSE 84
== END 2022-08-05 22:42 | disposition home or self-care (01) ==
LOC: JER 18:26
DX: N94.6 Dysmenorrhea, unspecified (principal)
CPT/HCPCS: 36415; 80053; 81003; 84702; 85025; 85610; 85730; 86850; 86900; 86901; 87086; 99284-25

== ENCOUNTER 2022-09-19 04:22 | Day surgery (SDC) | payer OTHER ==
[2022-09-18 09:57] VITALS: BMI 34.5
[2022-09-19] MEDS ORDERED: ceFAZolin SODIUM 1 GM VIAL IVPB ONE (13:18)
[2022-09-19] MEDS ORDERED: MIDAZOLAM HCL 2 MG/2 ML SINGLE DOSE VIAL ONE (15:06)
[2022-09-19] MEDS ORDERED: ceFAZolin SODIUM 1 GM VIAL ONE (15:18)
[2022-09-19] MEDS ORDERED: KETOROLAC TROMETHAMINE 30 MG/1 ML VIAL ONE (15:32)
[2022-09-19] MEDS ORDERED: oxyCODONE HCL 5 MG TABLET PO PRN (15:56)
[2022-09-19] MEDS ORDERED: ONDANSETRON 4 MG/2 ML VIAL IVPUSH PRN (15:56)
[2022-09-19] MEDS ORDERED: ACETAMINOPHEN 1000 MG/100 ML BAG IVPB PRN (15:57)
[2022-09-19] MEDS ORDERED: LACTATED RINGERS SOLUTION 1,000 ML IV SCH (16:00)
[2022-09-19] MEDS ORDERED: ACETAMINOPHEN INJECTION 100 ML IVPB ONE (16:36)
[2022-09-19 17:15] VITALS: RESP 18
[2022-09-19 19:26] VITALS: BP 112/72; PULSE 89; TEMP 98.1
== END 2022-09-19 18:15 | disposition home or self-care (01) ==
LOC: JASU-SURG 04:22
PROVIDERS: ATTEND Obstetrics & Gynecology
PROC: 10D17ZZ Extraction of Products of Conception, Retained, Via Natural or Artificial Opening (ICD-10-PCS; principal; 2022-09-19 15:00)
DX: O02.1 Missed abortion (principal)
CPT/HCPCS: 76998-TC; 88305-TC; 94760